=== PATIENT | male | born 1995 | race Caucasian/White ===

== ENCOUNTER 2016-05-26 07:58 | Emergency (ER) | payer OTHER, MEDICAID ==
[2016-05-26] MEDS ORDERED: OPTIRAY 350 100 ML VIAL HMH IV ONE (07:59)
[2016-05-26] MEDS ORDERED: ONDANSETRON 4 MG VIAL ONE (08:15)
[2016-05-26] MEDS ORDERED: SODIUM CHLORIDE 0.9% 1,000 ML ONE ×2 (08:15→09:41)
== END 2016-05-26 12:13 | disposition home or self-care (01) ==
LOC: ER 07:58
DX: R11.2 Nausea with vomiting, unspecified (principal)
CPT/HCPCS: 36415 ×2; 74177 ×2; 80053 ×2; 83690 ×2; 85025 ×2; 96361 ×2; 96374 ×2; 99284; J2405; Q9967

== ENCOUNTER 2016-06-14 07:16 | Emergency (ER) | payer OTHER, MEDICAID ==
[2016-06-14] MEDS ORDERED: ONDANSETRON 4 MG VIAL ONE (08:06)
[2016-06-14] MEDS ORDERED: SODIUM CHLORIDE 0.9% 1,000 ML ONE (08:06)
== END 2016-06-14 09:42 | disposition home or self-care (01) ==
LOC: ER 07:16
DX: K52.9 Noninfective gastroenteritis and colitis, unspecified (principal)
CPT/HCPCS: 36415; 80053; 83690; 85025; 96361; 96374; 99283; J2405